=== PATIENT | male | born 1995 | race African-American/Black ===

== ENCOUNTER 2018-10-14 23:33 | Emergency (ER) | payer OTHER ==
[~2018-10-14] VITALS: Ht 177.8 cm; Wt 70.3 kg
[2018-10-15] MEDS ORDERED: KETOROLAC 30 MG/ML VIAL. IM ONE (00:45)
--- NOTE | 2018-10-15 00:53 | RAD ---
Right hand 3 views. HISTORY: Crush injury index finger 3 views were taken of the right hand. There is deformity of the distal phalanx of the index finger which appears to be an old injury. An acute fracture of the index finger is not identified. There is soft tissue swelling of the index finger. IMPRESSION: 1. Deformity with evidence of an old fracture of the distal phalanx of the right index finger. 2. No acute fracture noted. 3. Soft tissue swelling. Electronically signed by: Deangelo Miranda MD (10/15/2018 12:49 AM) [facility]
[2018-10-15] MEDS ORDERED: DIPHTH,PERTUSS(ACELL),TET TOX 0.5 ML DISP.SYRIN. VAX IM ONE (01:00)
[2018-10-15] MEDS ORDERED: LIDOCAINE 2% 20 ML VIAL. IJ ONE (01:00)
--- NOTE | 2018-10-15 01:02 | PHYS DOC ---
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 Patient has laceration to this digit. Reports his pain 7 out of 10 in severity sharp and throbbing. Didn't taking medicine prior to arrival. Review of Systems Review of Systems Constitutional: Denies fever or chills [] Eyes: Denies change in visual acuity, redness, or eye pain [] HENT: Denies nasal congestion or sore throat [] Respiratory: Denies cough or shortness of breath [] Cardiovascular: No additional information not addressed in HPI [] GI: Denies abdominal pain, nausea, vomiting, bloody stools or diarrhea [] : Denies dysuria or hematuria [] Musculoskeletal: Reports finger pain. Integument: Reports laceration to R 2nd digit. Neurologic: Denies headache, focal weakness or sensory changes [] Endocrine: Denies polyuria or polydipsia [] Complete systems were reviewed and found to be within normal limits, except as documented in this note. Current Medications Current Medications Current Medications Medications (Trade) Dose Ordered Sig/Marimar Start Time Stop Time Status Last Admin Dose Admin Diphtheria/ Tetanus/Acell Pertussis (Boostrix) 0.5 ml ONCE ONCE 10/15/18 01:00 10/15/18 01:02 DC 10/15/18 01:36 0.5 ML Ketorolac Tromethamine (Toradol 30mg Vial) 30 mg 1X ONCE 10/15/18 00:45 10/15/18 00:46 DC 10/15/18 01:36 30 MG Lidocaine HCl 20 ml 1X ONCE 10/15/18 01:00 10/15/18 01:02 DC Allergies Allergies Allergies Coded Allergies Type Severity Reaction Last Updated Verified No Known Drug Allergies 10/15/18 No Physical Exam Physical Exam Constitutional: Well developed, well nourished, no acute distress, non-toxic appearance. [] HENT: Normocephalic, atraumatic, bilateral external ears normal, oropharynx moist, no oral exudates, nose normal. [] Eyes: PERRLA, EOMI, conjunctiva normal, no discharge. [] Neck: Normal range of motion, no tenderness, supple, no stridor. [] Cardiovascular:Heart rate regular rhythm, no murmur [] Lungs & Thorax: Bilateral breath sounds clear to auscultation [] Abdomen: Bowel sounds normal, soft, no tenderness, no masses, no pulsatile masses. [] Skin: 2.5 cm laceration to R 2nd digit. Back: No tenderness, no CVA tenderness. [] Extremities: No tenderness, no cyanosis, no clubbing, ROM intact, no edema. [] Neurologic: Alert and oriented X 3, normal motor function, normal sensory function, no focal deficits noted. [] Psychologic: Affect normal, judgement normal, mood normal. [] Current Patient Data Vital Signs Vital Signs Date Time Temp Pulse Resp B/P (MAP) Pulse Ox O2 Delivery O2 Flow Rate FiO2 10/14/18 23:46 98.2 62 16 165/109 (127) 100 Room Air 98.2 EKG EKG [] Radiology/Procedures Radiology/Procedures Performed a digital block on R 2nd digit with 2% lidocaine for pain control. [][facility] [address] [place] [address] IMAGING REPORT Signed PATIENT: YELENA RODRÍGUEZ ACCOUNT: [id number] : 1995 LOCATION: ER AGE: 23 SEX: M EXAM STATUS: REG ER ORD. PHYSICIAN: FREDDIE GORE APRN REASON: crush injury to index finger PROCEDURE: HAND RIGHT 3V Right hand 3 views. HISTORY: Crush injury index finger 3 views were taken of the right hand. There is deformity of the distal phalanx of the index finger which appears to be an old injury. An acute fracture of the index finger is not identified. There is soft tissue swelling of the index finger. IMPRESSION: 1. Deformity with evidence of an old fracture of the distal phalanx of the right index finger. 2. No acute fracture noted. 3. Soft tissue swelling. Electronically signed by: Deangelo Miranda MD (10/15/2018 12:49 AM) [facility] DICTATED and SIGNED BY: DEANGELO MIRANDA MD DATE: 10/15/18 0049 Course & Med Decision Making Course & Med Decision Making Pertinent Labs and Imaging studies reviewed. (See chart for details) Will get x-ray. Imaging is negative. Performed digital block and started attempting to approximate wound. Wound will not approximate due to fatty tissue. Will page Hand at [facility]. Discussed at [address] Colorado from [facility]. Dr. Colorado suggested placing dressing on wound and having patient follow up with Hand Surgeon in the Morning as patient is neurovascularly intact. Dragon Disclaimer Dragon Disclaimer This electronic medical record was generated, in whole or in part, using a voice recognition dictation system. Departure Departure Impression: Primary Impression: Laceration of hand with complication Disposition: HOME, SELF-CARE Condition: STABLE Referrals: NO PCP (PCP) Patient Instructions: Laceration Care, Adult Additional Instructions: Thank you for visiting [facility]. We appreciate you trusting us with your care. If any additional problems come up don't hesitate to return to visit us. Please follow up with your primary care provider so they can plan additional care if needed and know about the problem that you had. If symptoms worsen come back to the Emergency Department. Any concerning symptoms that start such as chest pain, shortness of air, weakness or numbness on one side of the body, running high fevers or any other concerning symptoms return to the ER. Please follow up with Hand tomorrow morning. Please call their office at [phone]. Scripts Cephalexin (KEFLEX) 500 Mg Capsule 1 CAP PO BID for 7 Days, #14 CAP Prov: FREDDIE GORE APRN 10/15/18 FREDDIE GORE APRN Oct 15, 2018 01:02
[2018-10-15] MEDS ORDERED: CEPH-264 PO (02:54)
[2018-10-15 03:50] VITALS: BP 144/94
== END 2018-10-15 03:50 | disposition home or self-care (01) ==
LOC: ER 23:33
DX: S61.210A Laceration without foreign body of right index finger without damage to nail, initial encounter (principal); W23.0XXA Caught, crushed, jammed, or pinched between moving objects, initial encounter; Y93.89 Activity, other specified; Y92.89 Other specified places as the place of occurrence of the external cause; Y99.8 Other external cause status
CPT/HCPCS: 64450; 73130; 90471; 90715; 96372; 99284; J1885; 99285-25